=== PATIENT | female | born 1990 | race Caucasian/White ===

== ENCOUNTER 2022-10-27 21:42 | Emergency (ER) | payer SELFPAY ==
[~2022-10-27] VITALS: Ht 154.9 cm; Wt 59.6 kg
[2022-10-27 22:03] VITALS: BP 137/92
== END 2022-10-28 02:17 | disposition left against medical advice (07) ==
LOC: ER 21:42
DX: Z53.21 Procedure and treatment not carried out due to patient leaving prior to being seen by health care provider (principal)